=== PATIENT | female | born 2000 | race Caucasian/White ===

== ENCOUNTER 2023-08-08 04:44 | Inpatient (IN) | payer OTHER ==
[~2023-08-08 04:44] MED LIST: Lidocaine 1% 10 ML MDV ONE; Sodium Bicarbonate 8.4% 50 MEQ/50 ML SDV ONE
[2023-08-08] MEDS ORDERED: Sodium Chloride 0.9% 10 ML Syringe FLUSH PRN (04:45)
[2023-08-08] MEDS ORDERED: Oxytocin/Lactated Ringers 30 UNIT/500 ML BAG IV SCH (04:45)
[2023-08-08] MEDS ORDERED: Ondansetron 4 MG/2 ML SDV IVPUSH PRN (04:45)
[2023-08-08] MEDS ORDERED: Nalbuphine HCl 10 MG/ 1ML Amp IVPUSH PRN (04:45)
[2023-08-08] MEDS ORDERED: Lidocaine 1% 50 ML MDV INJECT PRN (04:45)
[2023-08-08] MEDS ORDERED: Calcium Carbonate 500 MG Tab.Chew PO PRN (04:45)
[2023-08-08 05:29] LABS: BASOPHILS PERCENT AUTO 0.2 % (0.0-1.0); EOSINOPHILS ABSOLUTE AUTO 0.1 K/mm3 (0.0-0.4); EOSINOPHILS PERCENT AUTO 0.4 % (0.0-6.0); HEMATOCRIT 36.1 % (37.0-47.0); HEMOGLOBIN 12.5 gm/dl (12.0-16.0); IMMATURE GRAN ABSOLUTE AUTO 0.06 K/mm3 (0.00-0.05); IMMATURE GRAN PERCENT AUTO 0.5 % (0.0-0.4); LYMPHOCYTES ABSOLUTE AUTO 2.9 K/mm3 (1.0-4.8); LYMPHOCYTES PERCENT AUTO 22.9 % (24.0-44.0); MEAN CORPUSCULAR HEMOGLOBIN 31.4 pg (28.0-32.0); MEAN CORPUSCULAR HGB CONC 34.6 g/dl (32.0-36.0); MEAN CORPUSCULAR VOLUME 90.7 fl (83.0-99.0); MEAN PLATELET VOLUME 9.9 fl (9.4-12.3); MONOCYTES ABSOLUTE AUTO 0.7 K/mm3 (0.0-0.8); MONOCYTES PERCENT AUTO 5.8 % (0.0-8.0); NEUTROPHILS ABSOLUTE AUTO 8.9 K/mm3 (1.8-7.7); NEUTROPHILS PERCENT AUTO 70.2 % (41.0-71.0); PLATELET COUNT,PLT 292 K/mm3 (150-400); RED BLOOD CELL COUNT 3.98 M/mm3 (4.10-5.30); WHITE BLOOD CELL COUNT,WBC 12.64 K/mm3 (3.9-11.3)
[2023-08-08] MEDS ORDERED: Sodium Chloride 0.9% 10 ML Syringe FLUSH SCH (09:00)
[2023-08-08] MEDS ORDERED: ePHEDrine 50 MG/ML SDV IVPUSH PRN (11:04)
[2023-08-08] MEDS ORDERED: Phenylephrine 1% 10 MG/ML SDV IVPUSH PRN (11:04)
[2023-08-08] MEDS ORDERED: diphenhydrAMINE 50 MG/ML SDV IVPUSH PRN (11:04)
[2023-08-08] MEDS: Lactated Ringers 1,000 ML IV SCH (12:03)
[2023-08-08] MEDS: Oxytocin/Lactated Ringers 30 UNIT/500 ML BAG IV SCH (12:26)
[2023-08-08] MEDS: Bupivacaine/fentaNYL/NS 100 ML Bag EPIDUR PRN (12:31)
[2023-08-08] MEDS: fentaNYL 100 MCG/2 ML SDV EPIDUR PRN (12:31)
[2023-08-08] MEDS ORDERED: fentaNYL 100 MCG/2 ML SDV ONE (18:00)
[2023-08-08] MEDS ORDERED: Lidocaine 2% with EPINEPHrine 1:200,000 20 ML SDV ONE (18:00)
[2023-08-08] MEDS ORDERED: dexmedeTOMIDine HCl 200 MCG/2 ML SDV ONE (18:00)
[2023-08-08] MEDS ORDERED: Docusate Sodium 100 MG Cap PO PRN (23:11)
[2023-08-09] MEDS: Witch Hazel Medicated Pads 40/Jar TOP PRN (00:50)
[2023-08-09] MEDS: Acetaminophen 325 MG Tab PO PRN (00:50)
[2023-08-09] MEDS: Benzocaine/Menthol 20%-0.5% Spray 78 GM Cannister TOP PRN (00:51)
[2023-08-09] MEDS: Ibuprofen 600 MG Tab PO PRN (19:52)
== END 2023-08-10 12:11 | disposition home or self-care (01) | DRG 807 ==
LOC: JD.OB 04:44 → OBSVTOIN 22:20 → JD.OB 22:21
PROVIDERS: ADMIT Obstetrics & Gynecology; ATTEND Obstetrics & Gynecology
PROC: 10E0XZZ Delivery of Products of Conception, External Approach (ICD-10-PCS; principal; 2023-08-08)
PROC: 0KQM0ZZ Repair Perineum Muscle, Open Approach (ICD-10-PCS; 2023-08-08)
PROC: 3E0R3BZ Introduction of Anesthetic Agent into Spinal Canal, Percutaneous Approach (ICD-10-PCS; 2023-08-08)
PROC: 00HU33Z Insertion of Infusion Device into Spinal Canal, Percutaneous Approach (ICD-10-PCS; 2023-08-08)
PROC: 10H07YZ Insertion of Other Device into Products of Conception, Via Natural or Artificial Opening (ICD-10-PCS; 2023-08-08)
DX: O42.02 Full-term premature rupture of membranes, onset of labor within 24 hours of rupture (principal); Z37.0 Single live birth; P08.21 Post-term newborn; O70.1 Second degree perineal laceration during delivery; Z3A.41 41 weeks gestation of pregnancy
CPT/HCPCS: 36415; 51701; 51702; 59025; 59409; 85025; 86592; A9270-GY; J3010; J3490; J7120; J7999